=== PATIENT | male | born 1985 | race Caucasian/White ===

== ENCOUNTER 2016-07-19 17:37 | Emergency (ER) | payer OTHER ==
[2016-07-19] MEDS ORDERED: Pepcid 20 MG VIAL IV ONE ×2 (18:09→18:19)
[2016-07-19] MEDS ORDERED: BENADRYL 50 MG/ML IV ONE (18:09)
[2016-07-19] MEDS ORDERED: solu-MEDROL 125 MG IV ONE (18:09)
[2016-07-19] MEDS ORDERED: EPINEPHRINE 1:1000 1 ML AMP IM ONE (18:09)
[2016-07-19] MEDS ORDERED: Sodium Chloride 0.9% 1000 ML 1,000 ML IV SCH (18:15)
--- NOTE | 2016-07-19 18:16 | ERPHSYRPT ---
- History of Present Illness Time Seen by Provider: 07/19/16 17:50 Source: patient Exam Limitations: clinical condition Patient Subjective Stated Complaint: hives for 2 days Triage Nursing Assessment: started taking sudafed on wednesday for upper resp s/s. hives all over body since wednesday. c/o itching all over. no sob noted. Physician History: PATIENT MOWING BRUSH 4 DAYS AGO DEVELOPED HIVES WITH ITCHING OVER 3 DAYS. DENIES DIFFICULTY BREATHING OR SWALLOWING. Timing/Duration: day(s), worse Quality: burning, itchy Location: torso, extremities Possible Causes: exposure to allergen, poison marc Modifying Factors: Improves With: antihistamine Associated Symptoms: change in skin texture Allergies/Adverse Reactions: No Known Drug Allergies Allergy (Verified 07/19/16 17:54) Home Medications: Amlodipine Besylate 5 mg [Norvasc 5 mg] 5 mg PO DAILY 03/23/15 [History] Gabapentin 400 mg [Neurontin 400 MG] 800 mg PO TID 03/23/15 [History] Ranitidine HCl [Zantac] 150 mg PO DAILY 03/23/15 [History] Amlodipine Besylate 10 mg [Norvasc 10 MG] 10 mg PO DAILY 07/19/16 [History] Duloxetine HCl 30 mg [Cymbalta 30 MG Capsule] 30 mg PO DAILY 07/19/16 [ History] Lisinopril/Hydrochlorothiazide [Lisinopril-Hctz 20-12.5 mg Tab] 1 each PO BID [History] Pantoprazole 20 mg [Protonix 20MG Tablet] 40 mg PO DAILY 07/19/16 [History ] Pravastatin Sodium 20 mg PO HS 07/19/16 [History] Hx Tetanus, Diphtheria Vaccination/Date Given: Yes Hx Influenza Vaccination/Date Given: No Hx Pneumococcal Vaccination/Date Given: No Immunizations Up to Date: Yes - Review of Systems Constitutional: No Fever, No Chills Eyes: No Symptoms Ears, Nose, & Throat: No Symptoms Respiratory: No Symptoms, No Cough, No Dyspnea Cardiac: No Symptoms, No Chest Pain, No Edema, No Syncope Abdominal/Gastrointestinal: No Symptoms, No Abdominal Pain, No Nausea, No Vomiting, No Diarrhea Genitourinary Symptoms: No Dysuria Musculoskeletal: No Back Pain, No Neck Pain Skin: Pruritis, No Rash Neurological: No Dizziness, No Focal Weakness, No Sensory Changes Psychological: No Symptoms Endocrine: No Symptoms All Other Systems: Reviewed and Negative - Past Medical History Pertinent Past Medical History: Yes Neurological History: No Pertinent History ENT History: No Pertinent History Cardiac History: Hypertension Respiratory History: No Pertinent History Endocrine Medical History: No Pertinent History Musculoskeletal History: Other GI Medical History: GERD History: No Pertinent History Psycho-Social History: No Pertinent History Male Reproductive Disorders: No Pertinent History Other Medical History: back pain 1 broken disk - Past Surgical History Past Surgical History: Yes Neuro Surgical History: No Pertinent History Cardiac: No Pertinent History Respiratory: No Pertinent History Gastrointestinal: No Pertinent History Genitourinary: No Pertinent History Musculoskeletal: No Pertinent History Male Surgical History: No Pertinent History Other Surgical History: kyphoidplasty - Social History Smoking Status: Never smoker Exposure to second hand smoke: Yes Drug Use: none Patient Lives Alone: No - Nursing Vital Signs Nursing Vital Signs: Initial Vital Signs Temperature 97.8 F Temperature Source Oral Pulse Rate 75 Respiratory Rate 18 Blood Pressure [Right Arm] 128/65 Pain Intensity 0 - Physical Exam General Appearance: no apparent distress, alert Eye Exam: PERRL/EOMI, eyes nml inspection Ears, Nose, Throat Exam: normal ENT inspection, pharynx normal, moist mucous membranes Neck Exam: normal inspection, non-tender, supple, full range of motion Respiratory Exam: normal breath sounds, lungs clear, No respiratory distress Cardiovascular Exam: regular rate/rhythm, normal heart sounds Gastrointestinal/Abdomen Exam: soft, mass, No tenderness Back Exam: normal inspection, normal range of motion, No CVA tenderness, No vertebral tenderness Extremity Exam: normal inspection, normal range of motion Neurologic Exam: alert, oriented x 3, cooperative, normal mood/affect, sensation nml, No motor deficits Skin Exam: warm, dry, other (DIFFUSE ERYTHRMATOUS RAISED LESIONS) SpO2 Interpretation: normal SpO2: 98 Oxygen Delivery: Room Air Ordered Tests: Active Orders 24 hr Category Date Time Status Medical Record Specialist STAT Care 07/19/16 18:35 Active Medication Summary Generic Name Dose Route Start Last Admin Trade Name Freq PRN Reason Stop Dose Admin Sodium Chloride 1,000 mls @ 100 mls/hr 07/19/16 18:15 07/19/16 18:22 Sodium Chloride 0.9% 1000 Ml IV 07/04/17 18:14 100 mls/hr .Q10H DIEGO Administration Discontinued Medications Generic Name Dose Route Start Last Admin Trade Name Zaira PRN Reason Stop Dose Admin Diphenhydramine HCl 50 mg 07/19/16 18:09 07/19/16 18:22 Benadryl 50 Mg/Ml IV 07/19/16 18:10 50 mg STAT ONE Administration Diphenhydramine HCl Confirm 07/19/16 18:19 Benadryl 50 Mg/Ml Administered 07/19/16 18:20 Dose 50 mg .ROUTE .STK-MED ONE Epinephrine HCl 0.3 mg 07/19/16 18:09 07/19/16 18:21 Epinephrine 1:1000 1 Ml Amp IM 07/19/16 18:10 1 mg STAT ONE Administration Epinephrine HCl Confirm 07/19/16 18:19 Epinephrine 1:1000 1 Ml Amp Administered 07/19/16 18:20 Dose 1 mg .ROUTE .STK-MED ONE Famotidine 20 mg 07/19/16 18:09 07/19/16 18:22 Pepcid 20 Mg Vial IV 07/19/16 18:10 20 mg STAT ONE Administration Famotidine Confirm 07/19/16 18:19 Pepcid 20 Mg Vial Administered 07/19/16 18:20 Dose 20 mg IV .STK-MED ONE Methylprednisolone Sodium Succinate 125 mg 07/19/16 18:09 07/19/16 18:22 Solu-Medrol 125 Mg IV 07/19/16 18:10 125 mg STAT ONE Administration Methylprednisolone Sodium Succinate Confirm 07/19/16 18:19 Solu-Medrol 125 Mg Administered 07/19/16 18:20 Dose 125 mg .ROUTE .STK-MED ONE - Progress Progress Note: 07/19/16 18:17 PATIENT GIVEN IV NORMAL SALINE 100ML/HR, BENADRYL 50MG, SOLUMEDROL 125MG, PEPCID 20MG IV AND EPINEPHRINE 0.3MG IM 1:1000 Counseled pt/family regarding: diagnosis, need for follow-up - Departure Time of Disposition: 18:55 Departure Disposition: Home Clinical Impression: ALLERGIC REACTION Condition: Stable Critical Care Time: No Referrals: ELEN,AMALIA T. [Primary Care Provider] - Additional Instructions: CONTINUE BENADRYL 50MG EVERY 4 HOURS FOR ITCHING NEEDED. PREDNISONE 20MG,2 TABLETS DAILY FOR 5 DAYS. FOLLOWUP WITH YOUR FAMILY PHYSICIAN IN 1 WEEK. Prescriptions: Prednisone 20 mg [Deltasone 20 mg] 2 tab PO DAILY #10 tablet
[2016-07-19] MEDS ORDERED: solu-MEDROL 125 MG ONE (18:19)
[2016-07-19] MEDS ORDERED: EPINEPHRINE 1:1000 1 ML AMP ONE (18:19)
[2016-07-19] MEDS ORDERED: BENADRYL 50 MG/ML ONE (18:19)
[2016-07-19] MEDS ORDERED: Sodium Chloride 0.9% 1000 ML 1,000 ML ONE (18:19)
[2016-07-19 19:11] VITALS: BP 132/70; PULSE 81; O2SAT 100
== END 2016-07-19 19:10 | disposition home or self-care (01) ==
LOC: ED 17:37
DX: T78.40XA Allergy, unspecified, initial encounter (principal)
CPT/HCPCS: 93041; 96360; 96372; 96374; 96375; 99284; J0171; J1200; J2930

== ENCOUNTER 2018-05-18 12:58 | Day surgery (SDC) | payer OTHER ==
[2018-05-18] MEDS ORDERED: DIPRIVAN 200 MG/20 ML IV ONE (12:59)
[2018-05-18] MEDS ORDERED: Depo-Medrol 40 MG/ML IM ONE (12:59)
[2018-05-18] MEDS ORDERED: Ketamine HCl 50 MG/ML IJ ONE (12:59)
[2018-05-18] MEDS ORDERED: Marcaine 0.5% SDV 10 ML IJ ONE (12:59)
[2018-05-18] MEDS ORDERED: Xylocaine 1% Vial 30 ML PF IJ ONE (12:59)
--- NOTE | 2018-05-18 15:00 | XRAY ---
Indication: Left shoulder injection. Intraoperative fluoroscopy was provided for 26 seconds. Single digital spot image submitted for interpretation demonstrates needle tip projecting over the left mid glenohumeral joint. Small amount of contrast injected for needle tip placement. Correlate with intraoperative findings/report.
--- NOTE | 2018-05-18 15:05 | XRAY ---
26 seconds fluoroscopy time in surgery for left shoulder injection.
[2018-05-18] MEDS ORDERED: Lactated Ringers 1,000 ML IV ONE (18:05)
== END 2018-05-18 14:25 | disposition home or self-care (01) ==
LOC: SDC-PAIN 12:58
PROVIDERS: ATTEND Psychiatry & Neurology Pain Medicine
DX: M25.512 Pain in left shoulder (principal); M19.012 Primary osteoarthritis, left shoulder; Z79.899 Other long term (current) drug therapy; I10 Essential (primary) hypertension; E78.00 Pure hypercholesterolemia, unspecified; M19.90 Unspecified osteoarthritis, unspecified site; I25.10 Atherosclerotic heart disease of native coronary artery without angina pectoris; E78.5 Hyperlipidemia, unspecified; K21.9 Gastro-esophageal reflux disease without esophagitis
CPT/HCPCS: 20610; 73030; 77002; J1030; J2001; J2704; Q9966

== ENCOUNTER 2018-08-31 12:35 | Day surgery (SDC) | payer OTHER ==
[2018-08-31] MEDS ORDERED: Xylocaine 1% Vial 30 ML PF IJ ONE (12:36)
[2018-08-31] MEDS ORDERED: Sodium Chloride 0.9(Preservative Free) 10 ML IJ ONE (12:36)
[2018-08-31] MEDS ORDERED: Depo-Medrol 40 MG/ML IM ONE (12:36)
[2018-08-31] MEDS ORDERED: Lactated Ringers 1,000 ML IV ONE (13:13)
[2018-08-31] MEDS ORDERED: DIPRIVAN 200 MG/20 ML IV ONE (13:38)
[2018-08-31] MEDS ORDERED: Ketamine HCl 50 MG/ML ONE (13:38)
--- NOTE | 2018-08-31 15:25 | XRAY ---
Indication: L5-S1 GRETEL. Intraoperative fluoroscopy was provided for 20 seconds. 2 digital spot images submitted for interpretation demonstrates midline posterior needle tip just posterior to the L5-S1 interspace. Small amount of contrast injected for needle tip placement. Correlate with intraoperative findings/report.
--- NOTE | 2018-08-31 17:01 | XRAY ---
20 seconds fluoroscopy time in surgery for L5-S1 GRETEL.
== END 2018-08-31 14:05 | disposition home or self-care (01) ==
LOC: SDC-PAIN 12:35
PROVIDERS: ATTEND Psychiatry & Neurology Pain Medicine
DX: M54.16 Radiculopathy, lumbar region (principal); I10 Essential (primary) hypertension; E78.5 Hyperlipidemia, unspecified; K21.9 Gastro-esophageal reflux disease without esophagitis; Z79.899 Other long term (current) drug therapy
CPT/HCPCS: 62323; 72100; 77003; J1030; J2001; J2704; Q9966

== ENCOUNTER 2018-10-19 14:00 | Day surgery (SDC) | payer OTHER ==
[2018-10-19] MEDS ORDERED: Depo-Medrol 40 MG/ML IM ONE (14:01)
[2018-10-19] MEDS ORDERED: Sodium Chloride 0.9(Preservative Free) 10 ML IJ ONE (14:01)
[2018-10-19] MEDS ORDERED: Xylocaine 1% Vial 30 ML PF IJ ONE (14:01)
[2018-10-19] MEDS ORDERED: DIPRIVAN 200 MG/20 ML IV ONE (14:05)
[2018-10-19] MEDS ORDERED: Ketamine HCl 50 MG/ML ONE (14:06)
[2018-10-19] MEDS ORDERED: Lactated Ringers 1,000 ML IV ONE (15:55)
[2018-10-19] MEDS ORDERED: Xylocaine-Mpf 2% 5 Ml Vial ONE (16:01)
--- NOTE | 2018-10-19 17:04 | XRAY ---
Indication: Right L4-S1 GRETEL. Intraoperative fluoroscopy was provided for 48 seconds. 4 digital spot images submitted for interpretation demonstrates posterior needle tips projecting over the expected course of the right L4 and L5 nerve roots. Small amount of contrast injected for needle tip placement. Correlate with intraoperative findings/report.
--- NOTE | 2018-10-19 17:06 | XRAY ---
48 seconds fluoroscopy time in surgery for right L4-S1 GRETEL.
[2018-10-19 20:03] LABS: ALBUMIN 4.3 g/dL (3.5-5.0); ALKALINE PHOSPHATASE 74 U/L (38-126); ANION GAP 14.6 MEQ/L (5-15); BLOOD UREA NITROGEN 12 mg/dL (9-20); CHLORIDE 101 mmol/L (98-107); Calcium 9.5 mg/dL (8.4-10.2); Carbon Dioxide 28 mmol/L (22-30); Creatinine 1 0.65 mg/dL (0.66-1.25); Glucose 87 mg/dL (74-106); Potassium 3.9 mmol/L (3.5-5.1); SGOT/AST 36 U/L (17-59); SGPT/ALT 44 U/L (0-50); SODIUM 139 mmol/L (137-145); Total Protein 7.4 g/dL (6.3-8.2); Vitamin B12 394 pg/mL (239-931)
[2018-10-20 09:27] LABS: Hepatitis C Antibody by EIA Non Reactive (Non Reactive)
[2018-10-20 12:53] LABS: ANA Interpretation See Result Note:
[2018-10-21 16:48] LABS: Methylmalonic Acid, Serum 0.13 mcmol/L (0.00-0.40)
== END 2018-10-19 16:24 | disposition home or self-care (01) ==
LOC: SDC-PAIN 14:00
PROVIDERS: ATTEND Psychiatry & Neurology Pain Medicine
DX: M54.16 Radiculopathy, lumbar region (principal); I10 Essential (primary) hypertension; E78.5 Hyperlipidemia, unspecified; K21.9 Gastro-esophageal reflux disease without esophagitis; I25.10 Atherosclerotic heart disease of native coronary artery without angina pectoris; E78.00 Pure hypercholesterolemia, unspecified; Z79.899 Other long term (current) drug therapy
CPT/HCPCS: 36415; 72100; 77003; 80053; 82607; 82746; 82947; 83921; 84165; 84446; 85652; 86038; 86334; 86803; J1030; J2001; J2704

== ENCOUNTER 2018-11-30 12:22 | Day surgery (SDC) | payer OTHER ==
[2018-11-30] MEDS ORDERED: Depo-Medrol 40 MG/ML IM ONE (12:23)
[2018-11-30] MEDS ORDERED: Sodium Chloride 0.9(Preservative Free) 10 ML IJ ONE (12:23)
[2018-11-30] MEDS ORDERED: Ketamine HCl 50 MG/ML ONE (12:41)
[2018-11-30] MEDS ORDERED: DIPRIVAN 200 MG/20 ML IV ONE (12:41)
--- NOTE | 2018-11-30 14:13 | XRAY ---
Indication: Left L4-S1 GRETEL. Intraoperative fluoroscopy was provided for 34 seconds. 4 digital spot images submitted for interpretation demonstrates posterior needle tips projecting over the expected course of the left L4 and L5 nerve roots. Small amount of contrast injected for needle tip placement. Correlate with intraoperative findings/report.
--- NOTE | 2018-11-30 14:19 | XRAY ---
34 seconds fluoroscopy time in surgery for left L4-S1 GRETEL.
[2018-11-30] MEDS ORDERED: Lactated Ringers 1,000 ML IV ONE (15:26)
== END 2018-11-30 13:15 | disposition home or self-care (01) ==
LOC: SDC-PAIN 12:22
PROVIDERS: ATTEND Psychiatry & Neurology Pain Medicine
DX: M54.16 Radiculopathy, lumbar region (principal); I10 Essential (primary) hypertension; E78.00 Pure hypercholesterolemia, unspecified; I51.9 Heart disease, unspecified; K21.9 Gastro-esophageal reflux disease without esophagitis; E78.5 Hyperlipidemia, unspecified; Z79.899 Other long term (current) drug therapy
CPT/HCPCS: 64483; 64484; 72100; 77003; J1030; J2704; Q9966

== ENCOUNTER 2020-07-24 11:34 | Day surgery (SDC) | payer OTHER ==
[2020-07-24] MEDS ORDERED: LIDOCAINE HCL 2% 100 MG/5 ML IJ ONE (11:35)
[2020-07-24] MEDS ORDERED: Depo-Medrol 40 MG/ML IM ONE (11:35)
[2020-07-24] MEDS ORDERED: DIPRIVAN 200 MG/20 ML IV ONE (13:25)
--- NOTE | 2020-07-24 14:15 | XRAY ---
Indication: Bilateral L4-S1 MBB. Intraoperative fluoroscopy provided for 12 seconds. Single digital spot image submitted for interpretation demonstrate posterior needle tips projecting over the expected left and right L4-S1 nerve roots. Correlate with intraoperative findings/report.
--- NOTE | 2020-07-24 15:12 | XRAY ---
12 seconds of fluoroscopy was used in surgery for a bilateral L4-L5 and L5-S1 MBB.
[2020-07-24] MEDS ORDERED: Lactated Ringers 1,000 ML IV ONE (15:41)
== END 2020-07-24 13:49 | disposition home or self-care (01) ==
LOC: SDC-PAIN 11:34
PROVIDERS: ATTEND Psychiatry & Neurology Pain Medicine
DX: M47.816 Spondylosis without myelopathy or radiculopathy, lumbar region (principal); K21.9 Gastro-esophageal reflux disease without esophagitis; E78.5 Hyperlipidemia, unspecified; I10 Essential (primary) hypertension; M19.90 Unspecified osteoarthritis, unspecified site; Z79.899 Other long term (current) drug therapy
CPT/HCPCS: 64493; 64494; 72020; 77002; J1030; J2704

== ENCOUNTER 2020-09-25 11:07 | Day surgery (SDC) | payer OTHER ==
[2020-09-25] MEDS ORDERED: BUPIVACAINE 0.5% VIAL IJ ONE (11:08)
[2020-09-25] MEDS ORDERED: DIPRIVAN 200 MG/20 ML IV ONE (12:48)
--- NOTE | 2020-09-25 14:36 | XRAY ---
Indication: Bilateral L4-S1 MBB. Intraoperative fluoroscopy provided for 23 seconds. Single digital spot image submitted for interpretation demonstrates posterior needle tips projecting over the expected left and right L4-S1 nerve roots. Correlate with intraoperative findings/report.
--- NOTE | 2020-09-25 14:41 | XRAY ---
23 seconds fluoroscopy time in surgery for bilateral L4-S1 MbBB.
[2020-09-25] MEDS ORDERED: Lactated Ringers 1,000 ML IV ONE (16:35)
== END 2020-09-25 13:11 | disposition home or self-care (01) ==
LOC: SDC-PAIN 11:07
PROVIDERS: ATTEND Psychiatry & Neurology Pain Medicine
DX: M47.816 Spondylosis without myelopathy or radiculopathy, lumbar region (principal); Z79.899 Other long term (current) drug therapy
CPT/HCPCS: 64493; 64494; 72020; 77002; J2704

== ENCOUNTER 2022-08-26 14:02 | Day surgery (SDC) | payer OTHER ==
[2022-08-26] MEDS ORDERED: Sodium Chloride 0.9(Preservative Free) 10 ML IJ ONE (14:03)
[2022-08-26] MEDS ORDERED: Depo-Medrol 40 MG/ML IM ONE (14:03)
[2022-08-26] MEDS ORDERED: LIDOCAINE HCL 1% 50 MG/5 ML VL PF IJ ONE (14:03)
[2022-08-26] MEDS ORDERED: DIPRIVAN 200 MG/20 ML IV ONE (15:48)
[2022-08-26] MEDS ORDERED: Versed 2 MG/2 ML Injection ONE (15:55)
[2022-08-26] MEDS ORDERED: Lactated Ringers 1,000 ML IV ONE (15:55)
--- NOTE | 2022-08-26 18:41 | XRAY ---
Indication: Left L2-L4 transforaminal GRETEL. Intraoperative fluoroscopy provided for 51 seconds. 7 digital spot image submitted for interpretation demonstrates posterior needle tip projecting over the expected left L2 and L3 nerve roots. Small amount of contrast injected for needle tip placement. Correlate with intraoperative findings/report.
--- NOTE | 2022-08-26 18:56 | XRAY ---
51 seconds of fluoroscopy was used in surgery for a left L2-L4 transforaminal GRETEL.
== END 2022-08-26 16:26 | disposition home or self-care (01) ==
LOC: SDC-PAIN 14:02
PROVIDERS: ATTEND Psychiatry & Neurology Pain Medicine
DX: M54.16 Radiculopathy, lumbar region (principal); Z79.899 Other long term (current) drug therapy
CPT/HCPCS: 64483; 64484; 72100; 77003; J1030; J2001; J2250; J2704; Q9966